=== PATIENT | female | born 1995 | race Caucasian/White ===

== ENCOUNTER 2017-11-03 02:04 | Emergency (ER) | payer SELFPAY ==
[2017-11-03 02:26] LABS: URINE HCG POC HCG POSITIVE (Negative)
[2017-11-03 02:29] LABS: ADD MAN DIFF? NO
[2017-11-03 02:31] LABS: BASO # 0.1 x10^3/uL (0.0-0.2); BASO % 0 % (0-3); EOS % 0 % (0-3); HEMATOCRIT 36.9 % (36.0-47.0); HEMOGLOBIN 12.8 g/dL (12.0-15.5); LYMPH # 2.9 x10^3/uL (1.0-4.8); LYMPH % 18 % (24-48); MEAN CORPUSCULAR HEMOGLOBIN 31 pg (25-35); MEAN CORPUSCULAR HGB CONC 35 g/dL (31-37); MEAN CORPUSCULAR VOLUME 88 fL (79-100); MONO # 0.9 x10^3/uL (0.0-1.1); MONO % 6 % (0-9); NEUT % 76 % (31-73); PLATELET COUNT 289 x10^3/uL (140-400); RED BLOOD COUNT 4.18 x10^6/uL (3.50-5.40); RED CELL DISTRIBUTION WIDTH 12.7 % (11.5-14.5); WHITE BLOOD COUNT 15.8 x10^3/uL (4.0-11.0)
[2017-11-03 02:36] LABS: BILIRUBIN,URINE NEGATIVE (NEG); CLARITY,URINE CLEAR; COLOR,URINE YELLOW; GLUCOSE,URINE NEGATIVE (NEG); NITRITE,URINE NEGATIVE (NEG); PROTEIN,URINE NEGATIVE (NEG-TRACE); UROBILINOGEN,URINE 0.2 mg/dL (0.2 mg/dL)
[2017-11-03] MEDS ORDERED: diphenhydrAMINE 50 MG/ML VIAL (02:37)
[2017-11-03] MEDS ORDERED: METOCLOPRAMIDE HCL 10 MG/2 ML VIAL. (02:38)
[2017-11-03] MEDS: diphenhydrAMINE 50 MG/ML VIAL IVP (02:40)
[2017-11-03] MEDS: IV NORMAL SALINE 1000ML BAG 1,000 ML IV (02:41)
[2017-11-03] MEDS: METOCLOPRAMIDE HCL 10 MG/2 ML VIAL. IV (02:41)
[2017-11-03 02:43] LABS: BACTERIA,URINE MODERATE /HPF (0-FEW); RBC,URINE OCC /HPF (0-2); SQUAMOUS EPITHELIAL CELL,UR MANY /LPF
[2017-11-03 02:46] LABS: ANION GAP 11 (6-14); BLOOD UREA NITROGEN 9 mg/dL (7-20); BUN/CREATININE RATIO 13 (6-20); CALCIUM 9.2 mg/dL (8.5-10.1); CARBON DIOXIDE 23 mmol/L (21-32); CHLORIDE 102 mmol/L (98-107); CREATININE 0.7 mg/dL (0.6-1.0); GFR 105.6; GLUCOSE 94 mg/dL (70-99); POTASSIUM 3.2 mmol/L (3.5-5.1); SODIUM 136 mmol/L (136-145)
[2017-11-03 02:51] LABS: ALBUMIN 3.2 g/dL (3.4-5.0); ALBUMIN/GLOBULIN RATIO 0.8 (1.0-1.7); ALK PHOS 75 U/L (46-116); ALT (SGPT) 14 U/L (14-59); AST (SGOT) 15 U/L (15-37); TOTAL BILIRUBIN 0.4 mg/dL (0.2-1.0); TOTAL PROTEIN 7.1 g/dL (6.4-8.2)
[2017-11-03] MEDS: AMOXICILLIN/K CLAV 875/125MG TABLET. PO (03:28)
== END 2017-11-03 04:19 | disposition home or self-care (01) ==
LOC: ER 02:04
DX: O23.42 Unspecified infection of urinary tract in pregnancy, second trimester (principal); O99.352 Diseases of the nervous system complicating pregnancy, second trimester; O26.892 Other specified pregnancy related conditions, second trimester; O99.282 Endocrine, nutritional and metabolic diseases complicating pregnancy, second trimester; G43.909 Migraine, unspecified, not intractable, without status migrainosus; R10.30 Lower abdominal pain, unspecified; R11.0 Nausea; E05.90 Thyrotoxicosis, unspecified without thyrotoxic crisis or storm; Z3A.16 16 weeks gestation of pregnancy
CPT/HCPCS: 36415; 80053; 81001; 81025; 84702; 85025; 87086; 96374; 96375; 99284; J1200; J2765; J7030